=== PATIENT | male | born 1970 | race African-American/Black ===

== ENCOUNTER 2017-08-12 17:24 | Emergency (ER) | payer OTHER ==
[~2017-08-12] VITALS: Ht 157.5 cm; Wt 79.4 kg
[2017-08-12 18:00] VITALS: BP 170/97
== END 2017-08-12 21:04 | disposition admitted as inpatient to this hospital (09) ==
LOC: ERH 17:24
DX: S05.32XA Ocular laceration without prolapse or loss of intraocular tissue, left eye, initial encounter (principal)